=== PATIENT | female | born 1965 | race Caucasian/White ===

== ENCOUNTER 2016-07-17 22:29 | Emergency (ER) | payer OTHER ==
[2016-07-18 02:04] LABS: HEMOGLOBIN 14.1 gm/dl (12.3-15.3); RED BLOOD COUNT 4.57 M/UL (4.00-5.10); WHITE BLOOD COUNT 11.2 K/UL (4.5-11.0)
[2016-07-18 02:24] LABS: BUN/CREATININE RATIO 28 (0-10)
== END 2016-07-18 05:03 | disposition home or self-care (01) ==
LOC: ER1 22:29
PROVIDERS: Physician Assistant
DX: R10.817 Generalized abdominal tenderness (principal); F17.220 Nicotine dependence, chewing tobacco, uncomplicated
CPT/HCPCS: 36415; 80053; 81001; 82550; 82553; 83690; 83874; 84484; 84703; 85025; 87086; 93005; 96361; 96374; 96375; 96376; 99284; J2270; J2405; J7050; Q9962